=== PATIENT | female | born 1965 | race Caucasian/White ===

== ENCOUNTER 2018-03-19 23:16 | Emergency (ER) | payer OTHER, BC ==
--- NOTE | 2018-03-20 00:32 | EDPHYS ---
Physician Documentation [facility] Name: Magui Cooper Age: 53 yrs Sex: Female : 1965 Arrival Date: 03/19/2018 Time: 23:17 Bed 14 Private MD: ED Physician Gal Light HPI: 03/20 00:24 This 53 yrs old Female presents to ER via Wheelchair with complaints of Knee wa Injury. 00:24 The patient presents with an injury. The complaints affect the left knee. 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 Onset: The symptoms/episode began/occurred just prior to arrival. Modifying factors: The symptoms are alleviated by nothing. the symptoms are aggravated by movement, weight bearing, bending knee. Associated signs and symptoms: The patient has no apparent associated signs or symptoms. Treatment prior to arrival includes: no previous treatment. Severity of symptoms: At their worst the symptoms were moderate, in the emergency department the symptoms are unchanged. The patient has not experienced similar symptoms in the past. The patient has not recently seen a physician. 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 - Social history:: Smoking status: Patient/guardian denies using tobacco. - Ebola Screening: : No symptoms or risks identified at this time. - Family history:: not pertinent. - Hospitalizations: : No recent hospitalization is reported. ROS: 03/20 00:26 Constitutional: Negative for fever, chills, and weight loss, Eyes: Negative for injury, wa pain, redness, and discharge, ENT: Negative for injury, pain, and discharge, Neck: Negative for injury, pain, and swelling, Cardiovascular: Negative for chest pain, palpitations, and edema, Respiratory: Negative for shortness of breath, cough, wheezing, and pleuritic chest pain, Abdomen/GI: Negative for abdominal pain, nausea, vomiting, diarrhea, and constipation, Back: Negative for injury and pain, : Negative for injury, bleeding, discharge, and swelling, Skin: Negative for injury, rash, and discoloration, Neuro: Negative for headache, weakness, numbness, tingling, and seizure, Psych: Negative for depression, anxiety, suicide ideation, homicidal ideation, and hallucinations. MS/extremity: Positive for pain, swelling, tenderness, of the left knee. Exam: 00:27 Constitutional: This is a well developed, well nourished patient who is awake, alert, wa and in no acute distress. Head/Face: Normocephalic, atraumatic. Eyes: Pupils equal round and reactive to light, extra-ocular motions intact. Lids and lashes normal. Conjunctiva and sclera are non-icteric and not injected. Cornea within normal limits. Periorbital areas with no swelling, redness, or edema. ENT: Nares patent. No nasal discharge, no septal abnormalities noted. Tympanic membranes are normal and external auditory canals are clear. Oropharynx with no redness, swelling, or masses, exudates, or evidence of obstruction, uvula midline. Mucous membranes moist. Neck: Trachea midline, no thyromegaly or masses palpated, and no cervical lymphadenopathy. Supple, full range of motion without nuchal rigidity, or vertebral point tenderness. No Meningismus. Cardiovascular: Regular rate and rhythm with a normal S1 and S2. No gallops, murmurs, or rubs. Normal PMI, no JVD. No pulse deficits. Respiratory: Lungs have equal breath sounds bilaterally, clear to auscultation and percussion. No rales, rhonchi or wheezes noted. No increased work of breathing, no retractions or nasal flaring. Abdomen/GI: Soft, non-tender, with normal bowel sounds. No distension or tympany. No guarding or rebound. No evidence of tenderness throughout. Back: No spinal tenderness. No costovertebral tenderness. Full range of motion. Skin: Warm, dry with normal turgor. Normal color with no rashes, no lesions, and no evidence of cellulitis. Neuro: Awake and alert, GCS 15, oriented to person, place, time, and situation. Cranial nerves II-XII grossly intact. Motor strength 5/5 in all extremities. Sensory grossly intact. Cerebellar exam normal. Normal gait. Psych: Awake, alert, with orientation to person, place and time. Behavior, mood, and affect are within normal limits. 00:27 Musculoskeletal/extremity: Extremities: grossly normal except: noted in the left knee: pain, swelling, tenderness, swelling, tenderness. Vital Signs: 03/19 23:32 BP 135 / 73; Pulse 60; Resp 18; Temp 98.4(O); Pulse Ox 100% on R/A; Weight 90.72 kg; tl2 Height 5 ft. 9 in. (175.26 cm); Pain 5/10; 23:32 Body Mass Index 29.53 (90.72 kg, 175.26 cm) tl2 Procedures: 03/20 00:30 Splinting: Splint applied to left leg using knee immobilizer, applied by nurse. wa Examined by me, post splint application: neurovascular intact, 2+ distal pulses palpable, brisk capillary refill noted, Patient tolerated well, crutches taught and given. MDM: 03/19 23:32 Patient medically screened. nd 03/20 00:28 Differential diagnosis: dislocation, closed fracture, contusion. Data reviewed: vital wa signs, nurses notes. Test interpretation: by ED physician or midlevel provider: L transverse patella fracture. ED course: knee immobilizer placed. crutches. ortho f/u. 00:33 Response to treatment: the patient's symptoms have mildly improved after treatment, nd refused pain meds in ED. 03/19 23:35 Order name: Knee Left 3 View XRAY tl2 03/20 00:08 Order name: Knee Immobilizer: L LE; Complete Time: 00:51 nd 03/20 00:08 Order name: Crutches; Complete Time: 00:51 nd Administered Medications: No medications were administered Disposition: 03/20/18 00:31 Discharged to Home. Impression: Transvere fracture of the left patella. - Condition is Stable. - Discharge Instructions: Patellar Fracture, Adult. - Medication Reconciliation Form, Thank You Letter, Antibiotic Education, Prescription Opioid Use form. - Follow up: Heath Romero MD; When: 1 - 2 days; Reason: Recheck today's complaints. - Problem is new. - Symptoms have improved. - Notes: follow up withthe orthopedist as advised for further evaluation of fracture Signatures: Dispatcher [employer] EDStefanie López RN RN tl2 Gal Light MD MD wa Corrections: (The following items were deleted from the chart) 00:55 00:31 03/20/2018 00:31 Discharged to Home. Impression: Transvere fracture of the left tl2 patella. Condition is Stable. Forms are Medication Reconciliation Form, Thank You Letter, Antibiotic Education, Prescription Opioid Use. Follow up: Dr. Heath Romero; When: 1 - 2 days; Reason: Recheck today's complaints. Problem is new. Symptoms have improved. wa
--- NOTE | 2018-03-20 00:32 | ER ---
Nurse's Notes [facility] Name: Magui Cooper Age: 53 yrs Sex: Female : 1965 Arrival Date: 03/19/2018 Time: 23:17 Bed 14 Private MD: Diagnosis: Transvere fracture of the left patella Presentation: 03/19 23:28 Presenting complaint: Patient states: I slipped while walking to my car and fell on my tl2 left knee cap and heard it crack. Transition of care: patient was not received from another setting of care. Onset of symptoms was March 19, 2018 at 23:00. Risk Assessment: Do you want to hurt yourself or someone else? Patient reports no desire to harm self or others. Initial Sepsis Screen: Does the patient meet any 2 criteria? No. Patient's initial sepsis screen is negative. Does the patient have a suspected source of infection? No. Patient's initial sepsis screen is negative. Care prior to arrival: None. 23:28 Method Of Arrival: Wheelchair tl2 23:28 Acuity: LIDA 4 tl2 Triage Assessment: 23:32 General: Appears in no apparent distress. uncomfortable, Behavior is calm, cooperative, tl2 appropriate for age. Pain: Complains of pain in left knee Pain does not radiate. Pain currently is 5 out of 10 on a pain scale. Neuro: Level of Consciousness is awake, alert, obeys commands, Oriented to person, place, time, situation. Cardiovascular: Denies chest pain. Respiratory: Airway is patent Respiratory effort is even, unlabored, Respiratory pattern is regular, symmetrical. GI: No deficits noted. Derm: Skin is pink, warm \T\ dry. Musculoskeletal: Range of motion: limited in left knee Swelling present in left knee. 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 - Social history:: Smoking status: Patient/guardian denies using tobacco. - Ebola Screening: : No symptoms or risks identified at this time. - Family history:: not pertinent. - Hospitalizations: : No recent hospitalization is reported. Screenin:35 Abuse screen: Denies threats or abuse. Nutritional screening: No deficits noted. tl2 Tuberculosis screening: No symptoms or risk factors identified. Fall Risk Fall in past 12 months (25 points). Assessment: 23:35 Reassessment: see triage assessment. tl2 Vital Signs: 23:32 BP 135 / 73; Pulse 60; Resp 18; Temp 98.4(O); Pulse Ox 100% on R/A; Weight 90.72 kg; tl2 Height 5 ft. 9 in. (175.26 cm); Pain 5/10; 23:32 Body Mass Index 29.53 (90.72 kg, 175.26 cm) tl2 ED Course: 23:17 Patient arrived in ED. tl2 23:28 Stefanie Nava RN is Primary Nurse. tl2 23:29 Triage completed. tl2 23:32 Gal Light MD is Attending Physician. co 23:32 Arm band placed on right wrist. tl2 23:35 Patient has correct armband on for positive identification. Bed in low position. Call tl2 light in reach. Side rails up X 1. 23:35 No provider procedures requiring assistance completed. Patient did not have IV access tl2 during this emergency room visit. 23:54 X-ray completed. Portable x-ray completed in exam room. Patient tolerated procedure kp1 well. 23:55 Knee Left 3 View XRAY In Process Unspecified. EDIL [id number] 00:30 Heath Romero MD is Referral Physician. co Administered Medications: No medications were administered Outcome: 00:31 Discharge ordered by . co 00:54 Discharged to home with crutches. tl2 00:54 Condition: stable 00:54 Discharge instructions given to patient, Instructed on discharge instructions, follow up and referral plans. Demonstrated understanding of instructions, follow-up care. 00:55 Patient left the ED. tl2 Signatures: Dispatcher [employer] EDIL Stefanie Nava RN RN tl2 Carpenter Marnie kp1 Gal Light MD MD wa
--- NOTE | 2018-03-20 12:09 | RAD REPORT ---
EXAM DESCRIPTION: RAD - Knee Left 3 View - 03/20/2018 9:37 am CLINICAL HISTORY: SWELLING Fall, pain COMPARISON: No comparisons FINDINGS: Moderately distracted patellar fracture is noted with small lipohemarthrosis. Evidence of bony remodeling proximal tibia/fibula with hardware in place related to prior trauma. IMPRESSION: Patella fracture.
== END 2018-03-20 00:55 | disposition home or self-care (01) ==
LOC: ER 23:16
DX: S82.032A Displaced transverse fracture of left patella, initial encounter for closed fracture (principal); W18.30XA Fall on same level, unspecified, initial encounter; Y93.89 Activity, other specified; Y92.89 Other specified places as the place of occurrence of the external cause; Z88.2 Allergy status to sulfonamides; Z88.3 Allergy status to other anti-infective agents; Z88.5 Allergy status to narcotic agent; Z88.6 Allergy status to analgesic agent
CPT/HCPCS: 99283